=== PATIENT | male | born 1950 | race Hispanic/Latino ===

== ENCOUNTER 2023-09-27 21:16 | Emergency (ER) | payer OTHER ==
[~2023-09-27] VITALS: Ht 152.4 cm; Wt 59.0 kg
[2023-09-27 21:43] LABS: SARS-CoV-2, RNA, NAAT NEGATIVE SARS CoV-2 (NEGATIVE)
[2023-09-27 21:48] LABS: INFLUENZA TYPE A Negative For Type A (NEGATIVE); INFLUENZA TYPE B Negative For Type B (NEGATIVE)
[2023-09-27 21:52] LABS: BASOPHILS # (AUTO) 0.05 K/uL (0.00-0.20); BASOPHILS % (AUTO) 0.4 % (0.0-5.0); EOSINOPHILS % (AUTO) 2.3 % (0.0-8.0); HEMATOCRIT 35.4 % (42-54); IMMATURE GRANULOCYTE ABSOLUTE 0.07 K/uL (0-1); LYMPHOCYTES # (AUTO) 2.5 K/uL (1.0-4.8); LYMPHOCYTES % (AUTO) 19.2 % (21.0-51.0); MEAN CORPUSCULAR HEMOGLOBIN 32.2 pg (27.0-33.0); MEAN CORPUSCULAR VOLUME 91.9 fL (79-99); MONOCYTES # (AUTO) 0.7 K/uL (0.1-1.0); NEUTROPHILS # (AUTO) 9.5 K/uL (1.8-7.7); NEUTROPHILS % (AUTO) 72.6 % (40.0-77.0); PLATELET COUNT (AUTO) 248 K/uL (130-400); RED BLOOD CELL COUNT(AUTO) 3.85 MIL/uL (4.50-6.20); RED CELL DISTRIBUTION WIDTH 12.7 % (11.0-15.5); WHITE BLOOD COUNT (AUTO) 13.1 K/uL (4.8-10.8)
[2023-09-27 22:03] LABS: APPEARANCE,URINE CLEAR (CLEAR); BILIRUBIN,URINE NEGATIVE (NEGATIVE); CARBON DIOXIDE 27 mmol/L (21-32); COLOR,URINE LIGHT-YELLOW (YELLOW); CREATININE 0.9 mg/dL (0.5-1.5); GLOMERULAR FILTR. RATE CALC 91 mL/min (>90); GLUCOSE, URINE (UA) NEGATIVE (NEGATIVE); GLUCOSE,RANDOM 114 mg/dL (70-105); KETONES,URINE NEGATIVE (NEGATIVE); LEUKOCYTE ESTERASE ,URINE NEGATIVE Leu/uL (NEGATIVE); NITRATE,URINE NEGATIVE (NEGATIVE); OCCULT BLOOD,URINE NEGATIVE (NEGATIVE); PH,URINE 5.5 (5.0-8.0); POTASSIUM 4.3 mmol/L (3.5-5.1); PROTEIN,URINE NEGATIVE (NEGATIVE); SODIUM SERUM 127 mmol/L (136-145); UREA NITROGEN, BLOOD 11 mg/dL (7-18); UROBILINOGEN,URINE 0.2 mg/dL (0.2-1.0)
[2023-09-27 22:04] LABS: ADD UA MICROSCOPIC NO
[2023-09-27 22:05] LABS: CHLORIDE 90 mmol/L (101-111)
[2023-09-27 22:10] LABS: ALCOHOL, BLOOD 159 mg/dL (0-10); AMMONIA < 10 umol/L (11-32); CREATINE KINASE, TOTAL 141 U/L (21-232)
[2023-09-27] MEDS ORDERED: 0.9%NACL 1000ML 1,000 ML IV ONE (22:30)
[2023-09-27 22:51] LABS: AMPHET/METH SCREEN,URINE NEGATIVE (NEGATIVE); BARBITURATE SCREEN, URINE NEGATIVE (NEGATIVE); BENZODIAZEPINES SCREEN,URINE NEGATIVE (NEGATIVE); CANNABINOID SCREEN,URINE NEGATIVE (NEGATIVE); COCAINE SCREEN,URINE NEGATIVE (NEGATIVE); OPIATE SCREEN,URINE NEGATIVE (NEGATIVE); PHENCYCLIDINE SCREEN,URINE NEGATIVE (NEGATIVE)
[2023-09-27] MEDS ORDERED: ONDANSETRON 4MG INJ IVP ONE (23:00)
[2023-09-27] MEDS ORDERED: PANTOPRAZOLE 40 MG/VIAL IVP ONE (23:00)
[2023-09-27 23:29] LABS: ALBUMIN 4.2 g/dL (3.5-5.0); BILIRUBIN,DIRECT 0.1 mg/dL (0.0-0.3); BILIRUBIN,TOTAL 0.4 mg/dL (0.2-1.0); TOTAL PROTEIN, SERUM 8.4 g/dL (6.0-8.3)
[2023-09-28] MEDS ORDERED: PANT40TA55 PO (00:28)
[2023-09-28] MEDS ORDERED: THIAMINE HCL 100 MG/ML 2ML VIAL IVP ONE (00:30)
[2023-09-28] MEDS ORDERED: 0.9%NACL 1000ML 1,000 ML IV ONE (00:30)
[2023-09-28 01:46] VITALS: BP 142/70; PULSE 79; RESP 18; O2SAT 100
== END 2023-09-28 02:13 | disposition home or self-care (01) ==
LOC: EDH 21:16
DX: R10.13 Epigastric pain (principal); E86.0 Dehydration; F10.10 Alcohol abuse, uncomplicated; R78.0 Finding of alcohol in blood; I10 Essential (primary) hypertension; E78.00 Pure hypercholesterolemia, unspecified; Z20.822 Contact with and (suspected) exposure to COVID-19; Z79.899 Other long term (current) drug therapy
CPT/HCPCS: 99285; 96374; 76705; 71045; 96361 ×2; 87635; 96375 ×2; 82270; 82550; 80076; 84484 ×2; 80048; 80305; 82140; 83690; 85025; 87804 ×2; 36415; 93005; 81003; J2405; C9113; J3411